=== PATIENT | female | born 1965 | race Caucasian/White ===

== ENCOUNTER 2016-12-31 16:25 | Emergency (ER) | payer MEDICARE ==
[~2016-12-31] VITALS: Ht 160 cm; Wt 83.5 kg
[2016-12-31 16:31] VITALS: BP 122/67
--- NOTE | 2016-12-31 16:40 | NUR ---
Patient ambulated to bed 04.
--- NOTE | 2016-12-31 16:40 | NUR ---
PATIENT PRESENTS TO ED WITH C/O LOWER BACK PAIN X 2 DAYS--DENIES INCONTINENCE, DENIES DYSURIA HX---HTN, DM, ARTHRITIS RX----METFORMIN, MAXIDE, LISINOPRIL, LIPITOR; DENIES N/V/D; SKIN IS PINK/WARM/DRY; AAOX4 WITH EVEN AND STEADY GAIT; LUNGS CLEAR BL; HR EVEN AND REGULAR; PT DENIES ANY FEVER, CP, SOB, OR COUGH AT THIS TIME; PATIENT STATES PAIN OF 10/10 AT THIS TIME; VSS; PATIENT POSITIONED FOR COMFORT; HOB ELEVATED; BEDRAILS UP X2; BED DOWN. ER MD MADE AWARE OF PT STATUS.
--- NOTE | 2016-12-31 16:41 | NUR ---
Dr. Andrade evaluating patient at bedside.
[2016-12-31] MEDS ORDERED: KETOROLAC 30 MG/ML VIAL IM ONE (16:50)
[2016-12-31] MEDS ORDERED: diphenhydrAMINE 50 MG/ML VIAL IM ONE (16:50)
[2016-12-31] MEDS ORDERED: KETOROLAC 30 MG/ML VIAL ONE (16:52)
--- NOTE | 2016-12-31 16:57 | NUR ---
PT WENT TO XRAY ACCOMPANIED BY TECH.
[2016-12-31] MEDS ORDERED: HYDROmorphone 1 MG/ML AMP IM ONE (17:45)
[2016-12-31 18:26] VITALS: BP 112/67
--- NOTE | 2016-12-31 18:26 | NUR ---
Patient discharged with v/s stable. Written and verbal after care instructions given and explained. Patient alert, oriented and verbalized understanding of instructions. Ambulatory with steady gait. All questions addressed prior to discharge. ID band removed. Patient advised to follow up with PMD. Rx of NORCO, FLEXERIL given. Patient educated on indication of medication including possible reaction and side effects. Opportunity to ask questions provided and answered.
== END 2016-12-31 18:26 | disposition home or self-care (01) ==
LOC: MED 16:25
DX: G89.29 Other chronic pain (principal); M54.5 Low back pain; M54.9 Dorsalgia, unspecified; E11.9 Type 2 diabetes mellitus without complications; I10 Essential (primary) hypertension; E78.00 Pure hypercholesterolemia, unspecified; M19.90 Unspecified osteoarthritis, unspecified site
CPT/HCPCS: 72100; 81025; 82948; 96372; 99284; J1170; J1200; J1885

== ENCOUNTER 2021-01-12 23:45 | Emergency (ER) | payer MEDICARE ==
[~2021-01-12] VITALS: Ht 154.9 cm; Wt 76.2 kg
[2021-01-12 23:54] VITALS: BP 135/80
--- NOTE | 2021-01-13 01:07 | NUR ---
PT TAKEN TO BED 7
--- NOTE | 2021-01-13 01:11 | NUR ---
55 YO/F BIB self accompanied by w CO sharp constant back pain 10/ and reports she has not been able to void since yesterday 1500. Patient reports she has been unable to completely void for the past 3 weeks and has had episodes of dribbling urine, and having to strain to void d/t feeling like she is retaining urine. Patient also reports a burning sensation when she has urinated. Patient denies blood in urine. Patient denies injury to back. Patient laying supine in bed, locked in lowest position, HOB elevated, at bedside. NAD noted, will continue to monitor. PMH: HTN, Diabetes, fibromyalgia, asthma Allergies: Macrobid
--- NOTE | 2021-01-13 01:11 | NUR ---
Dr. Lauren examining patient.
[2021-01-13] MEDS ORDERED: NACL 0.9% 1,000 ML IV ONE (01:20)
[2021-01-13] MEDS ORDERED: cefTRIAXone 2,000 MG in DEXTROSE 5% 100 ML IV ONE (01:20)
[2021-01-13 01:33] LABS: BASOPHILS # (AUTO) 0.1 K/uL (0.00-0.22); BASOPHILS % (AUTO) 1.4 % (0.0-2.0); EOSINOPHILS # (AUTO) 0.1 K/uL (0-0.4); EOSINOPHILS % (AUTO) 1.4 % (0.0-4.0); HEMATOCRIT 35.4 % (36-48); HEMOGLOBIN 12.5 g/dL (12.0-16.0); LYMPHOCYTES # (AUTO) 1.7 K/uL (2.5-16.5); LYMPHOCYTES % (AUTO) 28.2 % (20.5-51.1); MEAN CORPUSCULAR HEMOGLOBIN 32 pg (27-31); MEAN CORPUSCULAR HGB CONC 35 g/dL (33-37); MEAN CORPUSCULAR VOLUME 90.4 fL (80-94); MONOCYTES # (AUTO) 0.4 K/uL (0.8-1.0); MONOCYTES % (AUTO) 6.9 % (1.7-9.3); NEUTROPHILS # (AUTO) 3.8 K/uL (1.8-7.7); NEUTROPHILS % (AUTO) 62.1 % (42.2-75.2); PLATELET COUNT (AUTO) 358 K/uL (140-450); RED BLOOD CELL COUNT(AUTO) 3.92 MIL/uL (4.20-5.40); RED CELL DISTRIBUTION WIDTH 13.7 % (11.6-13.7); WHITE BLOOD COUNT (AUTO) 6.1 K/uL (4.8-10.8)
--- NOTE | 2021-01-13 01:45 | NUR ---
Roach cathter inserted, 350mL clear yellow urine output. Patient tolerated procedure well.
[2021-01-13] MEDS ORDERED: cefTRIAXone 2,000 MG VIAL ONE (01:51)
[2021-01-13] MEDS ORDERED: KETOROLAC 30 MG/ML VIAL IVP ONE (02:15)
--- NOTE | 2021-01-13 02:45 | NUR ---
COVID SWAB COLLECTED AND WALKED TO LAB BY JULIEN ADAMS .
--- NOTE | 2021-01-13 02:48 | NUR ---
URINE TAKEN TO LAB AND GIVEN TO CAMILO LUCIO TECH.
[2021-01-13 02:50] LABS: APPEARANCE,URINE CLEAR (CLEAR); BILIRUBIN,URINE NEGATIVE (NEGATIVE); BLOOD, URINE TRACE-I (NEGATIVE); COLOR,URINE YELLOW (YELLOW); LEUKOCYTE ESTERASE ,URINE NEGATIVE (NEGATIVE); NITRITE, URINE POSITIVE (NEGATIVE); PH,URINE 5.5 (5.0-9.0); UGLUCOSE NEGATIVE (NEGATIVE)
--- NOTE | 2021-01-13 02:50 | NUR ---
ERMD AT BEDSIDE FOR FURTHER EVALUATION.
--- NOTE | 2021-01-13 02:55 | NUR ---
ICE PACKS PROVIDED FOR PT COMFORT.
[2021-01-13 03:20] LABS: RBC,URINE 0-5 /HPF (0-5); WBC,URINE 0-5 /HPF (0-5)
[2021-01-13] MEDS ORDERED: MORPHINE SULFATE 4 MG/ML SYR IVP ONE (03:50)
--- NOTE | 2021-01-13 05:25 | NUR ---
Dr. Lauren examining patient.
--- NOTE | 2021-01-13 05:30 | NUR ---
Patient total urinary output of 1600mL, clear yellow urine prior to d/c.
--- NOTE | 2021-01-13 05:30 | NUR ---
Patient D/C w Roach catheter and leg bag, per ermd order.
[2021-01-13 05:39] VITALS: BP 135/76
--- NOTE | 2021-01-13 05:39 | NUR ---
Patient discharged with v/s stable. Written and verbal after care instructions given and explained by . Patient verbalized understanding. Ambulatory with steady gait. All questions addressed prior to discharge BY . Advised to follow up with PMD.
== END 2021-01-13 05:39 | disposition home or self-care (01) ==
LOC: MED 23:45
DX: R33.9 Retention of urine, unspecified (principal); E11.9 Type 2 diabetes mellitus without complications; I10 Essential (primary) hypertension; J45.909 Unspecified asthma, uncomplicated; Z88.8 Allergy status to other drugs, medicaments and biological substances; Z20.822 Contact with and (suspected) exposure to COVID-19
CPT/HCPCS: 36415; 51702; 74176; 81001; 81025; 85025; 87040; 87086; 87426; 96365; 96375; 99284; J0696; J1885; J2270; J7030

== ENCOUNTER 2021-11-04 13:55 | Emergency (ER) | payer MEDICARE, MEDICAID ==
[~2021-11-04] VITALS: Ht 154.9 cm; Wt 72.6 kg
[2021-11-04 13:59] VITALS: BP 115/76
--- NOTE | 2021-11-04 14:10 | NUR ---
PT AMBULATED TO ER BED 3
[2021-11-04] MEDS ORDERED: NACL 0.9% 1,000 ML IV ONE (14:25)
--- NOTE | 2021-11-04 14:49 | NUR ---
blood collected from iv start, given to frances lutz
--- NOTE | 2021-11-04 14:53 | NUR ---
urine dip stick done and collected by frances lutz
--- NOTE | 2021-11-04 15:22 | NUR ---
56 y/o female, pt states she has had frequent uti in the past, was placed on fowler cath for 7 weeks, once removed pt started having symptoms of n&v, loss of appetite, frequent thirst, frequent voiding, dysuria, body aches. pcp made pt aware that her sodium levels were 129. skin is pink/warm/dry. a&o x4 with even and steady gait. lungs clear bl, heart rate even and regular. pt denies anyone sick in the household with the same symptoms. pt denies any fever, cp, sob, or cough at this time. pt states pain is 8/10 at this time. vss. patient positioned for comfort. hob elevated. bed down. ermd made aware of pt. pmh: uti, dm2, htn, fowler cath for 7 weeks allergy: latex, macrobid (hives) med: metformin, lisinopril, alprazolam, resotril
[2021-11-04 15:23] LABS: MEAN CORPUSCULAR HGB CONC 34 g/dL (33-37); WHITE BLOOD COUNT (AUTO) 4.2 K/uL (4.8-10.8)
[2021-11-04 15:32] LABS: BASOPHILS # (AUTO) 0.1 K/uL (0.00-0.22); BASOPHILS % (AUTO) 1.2 % (0.0-2.0); EOSINOPHILS # (AUTO) 0.1 K/uL (0-0.4); EOSINOPHILS % (AUTO) 1.7 % (0.0-4.0); HEMATOCRIT 35.3 % (36-48); LYMPHOCYTES # (AUTO) 1.8 K/uL (2.5-16.5); LYMPHOCYTES % (AUTO) 41.7 % (20.5-51.1); MEAN CORPUSCULAR HEMOGLOBIN 32 pg (27-31); MEAN CORPUSCULAR VOLUME 94.6 fL (80-94); MONOCYTES # (AUTO) 0.3 K/uL (0.8-1.0); MONOCYTES % (AUTO) 7.8 % (1.7-9.3); NEUTROPHILS % (AUTO) 47.6 % (42.2-75.2); PLATELET COUNT (AUTO) 289 K/uL (140-450); RED BLOOD CELL COUNT(AUTO) 3.74 MIL/uL (4.20-5.40); RED CELL DISTRIBUTION WIDTH 12.8 % (11.6-13.7)
[2021-11-04 15:42] LABS: ALBUMIN 3.9 g/dL (3.4-5.0); ANION GAP 12.2 (8-16); CARBON DIOXIDE 26.7 mmol/L (21-32); CREATININE 0.7 mg/dL (0.6-1.3); FREE T4 (FREE THYROXINE) 0.85 ng/dL (0.76-1.46); POTASSIUM 4.9 mmol/L (3.5-5.1); THYROID STIMULATING HORMONE 0.73 uIU/mL (0.34-3.74); TOTAL BILIRUBIN 0.3 mg/dL (0.0-1.0)
--- NOTE | 2021-11-04 15:46 | NUR ---
pt ambulated with even and steady gait to bathroom at this time
[2021-11-04 17:25] VITALS: BP 115/76
--- NOTE | 2021-11-04 17:25 | NUR ---
Patient discharged with v/s stable. Written and verbal after care instructions given and explained. Patient verbalized understanding. Ambulatory with steady gait. All questions addressed prior to discharge. Advised to follow up with PMD.
== END 2021-11-04 17:25 | disposition home or self-care (01) ==
LOC: MED 13:55
DX: E87.1 Hypo-osmolality and hyponatremia (principal); E11.9 Type 2 diabetes mellitus without complications; I10 Essential (primary) hypertension; Z98.890 Other specified postprocedural states; Z88.8 Allergy status to other drugs, medicaments and biological substances; Z91.040 Latex allergy status; Z98.84 Bariatric surgery status
CPT/HCPCS: 36415; 80053; 81002; 84439; 84443; 85025; 96360; 96361; 99283; J7030

== ENCOUNTER 2021-11-06 16:20 | Emergency (ER) | payer MEDICARE, MEDICAID ==
[~2021-11-06] VITALS: Ht 154.9 cm; Wt 75.1 kg
[2021-11-06 16:41] VITALS: BP 154/97
[2021-11-06 18:25] LABS: BASOPHILS # (AUTO) 0.1 K/uL (0.00-0.22); EOSINOPHILS % (AUTO) 0.4 % (0.0-4.0); HEMATOCRIT 40.1 % (36-48); HEMOGLOBIN 13.6 g/dL (12.0-16.0); LYMPHOCYTES # (AUTO) 2.3 K/uL (2.5-16.5); LYMPHOCYTES % (AUTO) 33.2 % (20.5-51.1); MEAN CORPUSCULAR HEMOGLOBIN 32 pg (27-31); MEAN CORPUSCULAR HGB CONC 34 g/dL (33-37); MEAN CORPUSCULAR VOLUME 94.2 fL (80-94); MONOCYTES # (AUTO) 0.4 K/uL (0.8-1.0); MONOCYTES % (AUTO) 6.4 % (1.7-9.3); NEUTROPHILS # (AUTO) 4.1 K/uL (1.8-7.7); PLATELET COUNT (AUTO) 307 K/uL (140-450); RED BLOOD CELL COUNT(AUTO) 4.26 MIL/uL (4.20-5.40); RED CELL DISTRIBUTION WIDTH 12.6 % (11.6-13.7); WHITE BLOOD COUNT (AUTO) 6.9 K/uL (4.8-10.8)
[2021-11-06 18:43] LABS: ALBUMIN 4.3 g/dL (3.4-5.0); ANION GAP 10.8 (8-16); CARBON DIOXIDE 28.4 mmol/L (21-32); CREATININE 0.7 mg/dL (0.6-1.3); POTASSIUM 4.2 mmol/L (3.5-5.1); TOTAL BILIRUBIN 0.3 mg/dL (0.0-1.0)
[2021-11-06] MEDS ORDERED: ONDANSETRON 4 MG/2 ML VIAL IVP ONE (18:55)
[2021-11-06] MEDS ORDERED: NACL 0.9% 1,000 ML IV ONE (18:55)
[2021-11-06] MEDS ORDERED: LORazepam 1 MG TAB PO ONE (18:55)
[2021-11-06] MEDS ORDERED: LORA-476 PO (20:03)
[2021-11-06 20:37] VITALS: BP 156/86
== END 2021-11-06 20:38 | disposition home or self-care (01) ==
LOC: MED 16:20
DX: E87.1 Hypo-osmolality and hyponatremia (principal); R11.0 Nausea; R63.0 Anorexia; R51.9 Headache, unspecified; E11.9 Type 2 diabetes mellitus without complications; I10 Essential (primary) hypertension; Z91.040 Latex allergy status; Z88.8 Allergy status to other drugs, medicaments and biological substances; Z90.49 Acquired absence of other specified parts of digestive tract; Z98.84 Bariatric surgery status; Z79.899 Other long term (current) drug therapy
CPT/HCPCS: 36415; 80053; 83930; 85025; 96374; 99283; J2405; J7030

== ENCOUNTER 2021-11-15 15:31 | Emergency (ER) | payer MEDICARE, MEDICAID ==
[~2021-11-15] VITALS: Ht 154.9 cm; Wt 73.9 kg
[~2021-11-15 15:31] MED LIST: LORA-476 PO
[2021-11-15 15:34] VITALS: BP 151/87
--- NOTE | 2021-11-15 15:57 | NUR ---
LAB BEDSIDE COLLECTING BLOODWORK.
--- NOTE | 2021-11-15 15:58 | NUR ---
URINE HANDED TO PACKAGING DESIGNERMICHELLE LUU
--- NOTE | 2021-11-15 16:01 | NUR ---
56 y/o female, c/o dehyrdration, states she has been drinking a lot of fluids, was seen previously here for same s/s. c/o lightheaded, cp 5/10 pain that is felt only in the mid-chest, fatigue, confusion, and states "I can feel the salt in my eyes and taste it." pt currently a&ox4, no signs of distress noted. pt denies any SOB, fever/chills, n/v. pain in chest is non-radiaitng and is pressure like pain. pt is still urinating and able to produce tears. per patient "her mouth and eyes are dry" pmh: dm2, htn allergy: latex, nitrofurantoin med:
--- NOTE | 2021-11-15 16:01 | NUR ---
xray at patient bedside
[2021-11-15 16:07] LABS: BASOPHILS % (AUTO) 0.7 % (0.0-2.0); EOSINOPHILS % (AUTO) 0.6 % (0.0-4.0); HEMATOCRIT 37.1 % (36-48); HEMOGLOBIN 12.7 g/dL (12.0-16.0); LYMPHOCYTES # (AUTO) 1.7 K/uL (2.5-16.5); LYMPHOCYTES % (AUTO) 29.1 % (20.5-51.1); MEAN CORPUSCULAR HEMOGLOBIN 32 pg (27-31); MEAN CORPUSCULAR HGB CONC 34 g/dL (33-37); MEAN CORPUSCULAR VOLUME 94.1 fL (80-94); MONOCYTES # (AUTO) 0.4 K/uL (0.8-1.0); MONOCYTES % (AUTO) 6.6 % (1.7-9.3); NEUTROPHILS # (AUTO) 3.7 K/uL (1.8-7.7); PLATELET COUNT (AUTO) 317 K/uL (140-450); RED BLOOD CELL COUNT(AUTO) 3.94 MIL/uL (4.20-5.40); RED CELL DISTRIBUTION WIDTH 13.1 % (11.6-13.7); WHITE BLOOD COUNT (AUTO) 5.8 K/uL (4.8-10.8)
--- NOTE | 2021-11-15 16:19 | NUR ---
dr. leon bedside evaluating pt
[2021-11-15 16:30] LABS: ALBUMIN 4.1 g/dL (3.4-5.0); ANION GAP 9.1 (8-16); CARBON DIOXIDE 27.4 mmol/L (21-32); CREATININE 0.8 mg/dL (0.6-1.3); POTASSIUM 4.5 mmol/L (3.5-5.1); TOTAL BILIRUBIN 0.2 mg/dL (0.0-1.0)
[2021-11-15] MEDS ORDERED: NACL 0.9% 1,000 ML IV ONE (16:30)
--- NOTE | 2021-11-15 16:51 | NUR ---
PT PROVIDED WITH WARM BLANKET BEDSIDE
[2021-11-15 17:04] LABS: APPEARANCE,URINE CLEAR (CLEAR); BILIRUBIN,URINE NEGATIVE (NEGATIVE); BLOOD, URINE TRACE-I (NEGATIVE); COLOR,URINE YELLOW (YELLOW); LEUKOCYTE ESTERASE ,URINE NEGATIVE (NEGATIVE); NITRITE, URINE NEGATIVE (NEGATIVE); UGLUCOSE NEGATIVE (NEGATIVE)
--- NOTE | 2021-11-15 17:15 | NUR ---
PT AMBULATED TO RESTROOM WITH STEADY GAIT
[2021-11-15 17:27] LABS: FREE T4 (FREE THYROXINE) 0.87 ng/dL (0.76-1.46)
--- NOTE | 2021-11-15 18:01 | NUR ---
PATIENT IS AT REST. NO SIGNS OF DISTRESS. PROVIDED PT WITH BLANKET .
--- NOTE | 2021-11-15 18:58 | NUR ---
rosangela tavera collected and walked to lab
[2021-11-15] MEDS ORDERED: METF-1243 PO (19:01)
[2021-11-15] MEDS ORDERED: TEMA30CA23 PO (19:01)
[2021-11-15] MEDS ORDERED: LISI5TAB18 PO (19:01)
[2021-11-15] MEDS ORDERED: PROG100C4 PO (19:18)
--- NOTE | 2021-11-15 19:18 | NUR ---
Pt report given to NICOLE HUANG. Transfer of care at this time.
[2021-11-15 19:38] LABS: ANION GAP 7.9 (8-16); CARBON DIOXIDE 27.8 mmol/L (21-32); CREATININE 0.7 mg/dL (0.6-1.3); POTASSIUM 3.7 mmol/L (3.5-5.1)
--- NOTE | 2021-11-15 20:25 | NUR ---
SON KENNEDY [phone] PLEASE CALL HIM WHEN READY FOR PICKUP
--- NOTE | 2021-11-15 20:47 | NUR ---
PT STATED SHE FELT WEAK. ASKED ERMD IF PT COULD HAVE FOOD. PROVIDED PT SANDWHICH, JUICE AND CRACKERS
--- NOTE | 2021-11-15 21:32 | NUR ---
MADE PT AWARE THAT SHE WILL BE TRANSFERED TO ANOTHER HOSPITAL. TRANSFER CONSENT SIGNED
[2021-11-15] MEDS ORDERED: LORazepam 0.5 MG TAB PO ONE (22:00)
--- NOTE | 2021-11-15 23:21 | NUR ---
Patient to be transferred to [facility]. Is being transferred due to INSURANCE PREFERENCE. Receiving facility has accepting physician and available space. ER physician has signed transfer form. Patient or responsible alliance party has agreed to transfer and signed form. Patient belongings inventoried and will be sent with patient. Copy of nursing notes, lab reports, EKG, Physicians Orders and X-rays to be sent with patient. Report called to JULIEN HUTCHINSON at receiving facility. S ambulance service has been called for transfer. ETA is 10 MIN.
--- NOTE | 2021-11-16 00:06 | NUR ---
[facility] TRAN[facility] AT BEDSIDE
[2021-11-16 00:16] VITALS: BP 123/74
--- NOTE | 2021-11-16 00:16 | NUR ---
PT TAKEN BY [facility] TRANSPORT TO [facility] ED BED [id number]
--- NOTE | 2021-11-16 00:36 | NUR ---
The patient's care was reviewed and supervised by Alexa Soares RN.
== END 2021-11-16 00:16 | disposition short-term general hospital (02) ==
LOC: MED 15:31
DX: E87.1 Hypo-osmolality and hyponatremia (principal); Z20.822 Contact with and (suspected) exposure to COVID-19; R07.9 Chest pain, unspecified; I44.7 Left bundle-branch block, unspecified; R42 Dizziness and giddiness; I10 Essential (primary) hypertension; E11.9 Type 2 diabetes mellitus without complications; Z98.890 Other specified postprocedural states; Z79.84 Long term (current) use of oral hypoglycemic drugs; Z98.84 Bariatric surgery status; Z88.1 Allergy status to other antibiotic agents; Z91.040 Latex allergy status
CPT/HCPCS: 36415; 71045; 80048; 80053; 81003; 83880; 83930; 83935; 84300; 84439; 84443; 84484; 85025; 87426; 93005; 96360; 99285; J7030; Q0092

== ENCOUNTER 2022-09-14 11:00 | Emergency (ER) | payer OTHER, MEDICAID ==
[~2022-09-14] VITALS: Ht 154.9 cm; Wt 81.2 kg
[~2022-09-14 11:00] MED LIST changes: +LISI5TAB18 PO; +METF-1243 PO; +PROG100C4 PO; +TEMA30CA23 PO
[2022-09-14 11:08] VITALS: BP 185/98
--- NOTE | 2022-09-14 11:33 | NUR ---
pt ambulated to bed 01
[2022-09-14] MEDS ORDERED: FAMOTIDINE 20 MG/2 ML VIAL IVP ONE (12:00)
[2022-09-14] MEDS ORDERED: NACL 0.9% 1,000 ML IV ONE (12:00)
[2022-09-14] MEDS ORDERED: ONDANSETRON 4 MG/2 ML VIAL IVP ONE (12:00)
--- NOTE | 2022-09-14 12:00 | NUR ---
ASSUMED PATIENT CARE, NURSING ASSESSMENT COMPLETED. DR MCKINNEY AT BEDSIDE, MSE COMPLETED.
--- NOTE | 2022-09-14 12:10 | NUR ---
LABS AND EKG COMPLETED.
[2022-09-14 12:35] LABS: ALBUMIN 4.4 g/dL (3.4-5.0); ANION GAP 13.5 (8-16); ASPARTATE AMINOTRANSFERASE 24 U/L (15-37); CARBON DIOXIDE 27.7 mmol/L (21-32); CHLORIDE 101 mmol/L (98-107); GFR ARICAN-AMERICAN 73 mL/min (>90); GLUCOSE 159 mg/dL (74-106); LIPASE 134 U/L (73-393); POTASSIUM 4.2 mmol/L (3.5-5.1); SODIUM SERUM 138 mmol/L (136-145); TOTAL BILIRUBIN 0.3 mg/dL (0.0-1.0); UREA NITROGEN, BLOOD 16 mg/dL (7-18)
[2022-09-14 12:41] LABS: BASOPHILS % (AUTO) 0.4 % (0.0-2.0); EOSINOPHILS % (AUTO) 0.1 % (0.0-4.0); HEMATOCRIT 39.9 % (36-48); HEMOGLOBIN 13.4 g/dL (12.0-16.0); LYMPHOCYTES # (AUTO) 1.4 K/uL (2.5-16.5); LYMPHOCYTES % (AUTO) 28.7 % (20.5-51.1); MEAN CORPUSCULAR HEMOGLOBIN 32 pg (27-31); MEAN CORPUSCULAR HGB CONC 34 g/dL (33-37); MEAN CORPUSCULAR VOLUME 96.3 fL (80-94); MONOCYTES # (AUTO) 0.3 K/uL (0.8-1.0); MONOCYTES % (AUTO) 6.8 % (1.7-9.3); NEUTROPHILS # (AUTO) 3.2 K/uL (1.8-7.7); PLATELET COUNT (AUTO) 260 K/uL (140-450); RED BLOOD CELL COUNT(AUTO) 4.15 MIL/uL (4.20-5.40); RED CELL DISTRIBUTION WIDTH 13.6 % (11.6-13.7); WHITE BLOOD COUNT (AUTO) 4.9 K/uL (4.8-10.8)
[2022-09-14] MEDS ORDERED: KETOROLAC 15 MG/ML VIAL IVP ONE (13:00)
[2022-09-14] MEDS ORDERED: METOCLOPRAMIDE 10 MG/2 ML INJ VIAL IVP ONE (13:50)
[2022-09-14] MEDS ORDERED: ALUMINUM HYD/MAG/SIMETHICONE 30 ML UDC PO ONE (13:50)
[2022-09-14] MEDS ORDERED: METO-485 PO (14:12)
[2022-09-14] MEDS ORDERED: MAG355OR2 PO (14:12)
[2022-09-14] MEDS ORDERED: OMEP40EC24 PO (14:12)
[2022-09-14 14:20] LABS: APPEARANCE,URINE CLEAR (CLEAR); BILIRUBIN,URINE NEGATIVE (NEGATIVE); BLOOD, URINE TRACE-I (NEGATIVE); COLOR,URINE YELLOW (YELLOW); LEUKOCYTE ESTERASE ,URINE NEGATIVE (NEGATIVE); NITRITE, URINE POSITIVE (NEGATIVE); UGLUCOSE NEGATIVE (NEGATIVE)
[2022-09-14 14:43] LABS: OTHER CASTS, URINE None Seen /LPF (None Seen)
--- NOTE | 2022-09-14 15:00 | NUR ---
PATIENT REQUESTING TO SPEAK .
--- NOTE | 2022-09-14 15:40 | NUR ---
DR SLATER AT BEDSIDE, UPDATING THE PATIENT ACCORDINGLY.
[2022-09-14] MEDS ORDERED: DIPH25TA53 PO (15:45)
[2022-09-14] MEDS ORDERED: NITR100C7 PO (15:45)
--- NOTE | 2022-09-14 15:51 | NUR ---
DISPO AND MEDICAL DECISION MAKING DC HOME WITH AFTERCARE INSTRUCTIONS AND E-RX. ALL INSTRUCTIONS DISCUSSED WITH PATIENT AND ACKNOWLEDGED ACCORDINGLY. PATIENT REPORTS RELIEF BUT WAS INSTRUCTED TO TAKE MEDS PRESCRIBED TO ADDRESS FURTHER SYMPTOMS. DC HOME AMBULATORY, VS WNL.
[2022-09-14 15:53] VITALS: BP 114/65
[2022-09-14] MEDS ORDERED: CIPR500T4 PO (22:43)
== END 2022-09-14 15:53 | disposition home or self-care (01) ==
LOC: MED 11:00
DX: R11.2 Nausea with vomiting, unspecified (principal); R10.10 Upper abdominal pain, unspecified; R07.89 Other chest pain; E11.9 Type 2 diabetes mellitus without complications; I10 Essential (primary) hypertension; Z98.84 Bariatric surgery status; Z79.84 Long term (current) use of oral hypoglycemic drugs; Z90.49 Acquired absence of other specified parts of digestive tract; Z98.890 Other specified postprocedural states; Z79.899 Other long term (current) drug therapy; Z88.8 Allergy status to other drugs, medicaments and biological substances; Z91.040 Latex allergy status
CPT/HCPCS: 36415; 80053; 81001; 83690; 84484; 85025; 87086; 96361; 96374; 96375; 99284; J1885; J2405; J2765; J3490

== ENCOUNTER 2023-02-14 15:21 | Emergency (ER) | payer OTHER, MEDICAID ==
[~2023-02-14] VITALS: Ht 154.9 cm; Wt 78.0 kg
[~2023-02-14 15:21] MED LIST changes: +CIPR500T4 PO; +DIPH25TA53 PO; +MAG355OR2 PO; +METO-485 PO; +OMEP40EC24 PO
[2023-02-14 15:35] VITALS: BP 131/76; PULSE 89; RESP 16; TEMP 98.2; O2SAT 96
[2023-02-14 15:59] LABS: BASOPHILS # (AUTO) 0.1 K/uL (0.00-0.22); BASOPHILS % (AUTO) 1.3 % (0.0-2.0); EOSINOPHILS # (AUTO) 0.1 K/uL (0-0.4); EOSINOPHILS % (AUTO) 1.3 % (0.0-4.0); HEMATOCRIT 39.1 % (36-48); HEMOGLOBIN 13.2 g/dL (12.0-16.0); LYMPHOCYTES % (AUTO) 35.8 % (20.5-51.1); MEAN CORPUSCULAR HEMOGLOBIN 32 pg (27-31); MEAN CORPUSCULAR HGB CONC 34 g/dL (33-37); MEAN CORPUSCULAR VOLUME 95.9 fL (80-94); MONOCYTES # (AUTO) 0.5 K/uL (0.8-1.0); MONOCYTES % (AUTO) 8.5 % (1.7-9.3); NEUTROPHILS % (AUTO) 53.1 % (42.2-75.2); PLATELET COUNT (AUTO) 350 K/uL (140-450); RED BLOOD CELL COUNT(AUTO) 4.08 MIL/uL (4.20-5.40); RED CELL DISTRIBUTION WIDTH 13.4 % (11.6-13.7); WHITE BLOOD COUNT (AUTO) 5.6 K/uL (4.8-10.8)
[2023-02-14 16:15] LABS: ALBUMIN 4.3 g/dL (3.4-5.0); ANION GAP 13.7 (8-16); CARBON DIOXIDE 25.8 mmol/L (21-32); CREATININE 0.8 mg/dL (0.6-1.3); POTASSIUM 4.5 mmol/L (3.5-5.1); TOTAL BILIRUBIN 0.3 mg/dL (0.0-1.0)
--- NOTE | 2023-02-14 17:13 | NUR ---
PATIENT PRESENTS TO ED WITH MIDLINE ABD PAIN. THAT HAS BEEN THREE DAYS. PT STATES SHE HAS NO APPETTITE. PT STATES SHE HAS BEEN TREATING HER GASTRITIS AT HOME, PRIOR BUT CAN NOT GET THE PAIN TO STOP. PT STATES SHE HAS HAD NAUSEA, VOMITTING BUT DENIES DIARREHA.SKIN IS PINK/WARM/DRY; AAOX4 WITH EVEN AND STEADY GAIT; LUNGS CLEAR BL; HR EVEN AND REGULAR; PT DENIES ANY FEVER, CP, SOB, OR COUGH AT THIS TIME; PATIENT STATES PAIN OF 8/10 AT THIS TIME; VSS; PATIENT POSITIONED FOR COMFORT; HOB ELEVATED; BEDRAILS UP X2; BED DOWN. CALL LIGHT WITH IN REACH. ER MD MADE AWARE OF PT STATUS. PMHX GASTRITIS DEHYDRATION UTI
[2023-02-14 17:19] VITALS: O2SAT 96
[2023-02-14] MEDS ORDERED: NACL 0.9% 1,000 ML IV ONE (17:25)
[2023-02-14] MEDS ORDERED: DICYCLOMINE HCL LIQUID 20 MG, ALUMINUM HYD/MAG/SIMETHICONE 30 ML, LIDOCAINE VISCOUS 2% ... PO ONE ×3 (17:25)
[2023-02-14] MEDS ORDERED: ONDANSETRON 4 MG/2 ML VIAL IVP ONE (17:25)
[2023-02-14] MEDS ORDERED: KETOROLAC 30 MG/ML VIAL IVP ONE (17:25)
[2023-02-14] MEDS ORDERED: ALUMINUM HYD/MAG/SIMETHICONE 30 ML UDC ONE (17:34)
[2023-02-14] MEDS ORDERED: DICYCLOMINE HCL LIQUID 10 MG/5 ML UDC ONE (17:34)
[2023-02-14] MEDS ORDERED: ONDA8TAB87 PO (17:48)
[2023-02-14] MEDS ORDERED: IBUP-2213 PO (17:48)
[2023-02-14] MEDS ORDERED: OMEP40EC23 PO (17:48)
--- NOTE | 2023-02-14 18:18 | NUR ---
PT HAS BEEN MEDICATED. PTS FLUIDS INFUSING. NO SIGNS OF DISCOMFORT AT THIS TIME.
--- NOTE | 2023-02-14 18:52 | NUR ---
PT STATES SHES STILL IN PAIN, PAIN IS AT AN 8.
[2023-02-14] MEDS ORDERED: MORPHINE SULFATE 4 MG/ML SYR IM ONE (18:55)
--- NOTE | 2023-02-14 19:10 | NUR ---
PT HAS BEEN MEDICATED BY JULIEN LUKE
--- NOTE | 2023-02-14 19:28 | NUR ---
Pt report given to JULIEN FRASER. Transfer of care at this time.
[2023-02-14 19:53] VITALS: BP 131/76; PULSE 89; RESP 16; TEMP 98.2; O2SAT 96
--- NOTE | 2023-02-14 19:53 | NUR ---
Patient discharged with v/s stable. Written and verbal after care instructions given and explained. New rx ibuprofen, prilosec, and zofran. Patient verbalized understanding. Ambulatory with steady gait. Pt was picked up by daughter to take home. All questions addressed prior to discharge. Advised to follow up with PMD.
== END 2023-02-14 19:53 | disposition home or self-care (01) ==
LOC: MED 15:21
DX: R10.13 Epigastric pain (principal); R11.2 Nausea with vomiting, unspecified; E87.1 Hypo-osmolality and hyponatremia; E11.9 Type 2 diabetes mellitus without complications; K21.9 Gastro-esophageal reflux disease without esophagitis; I10 Essential (primary) hypertension; Z79.4 Long term (current) use of insulin; Z79.899 Other long term (current) drug therapy; Z98.890 Other specified postprocedural states
CPT/HCPCS: 36415; 80053; 81025; 83690; 85025; 96361; 96374; 96375; 99284; J1885; J2270; J2405; J7030; 81002

== ENCOUNTER 2023-03-21 16:20 | Emergency (ER) | payer OTHER, MEDICAID ==
[~2023-03-21] VITALS: Ht 154.9 cm; Wt 77.2 kg
[~2023-03-21 16:20] MED LIST changes: +IBUP-2213 PO; +OMEP40EC23 PO; +ONDA8TAB87 PO
[2023-03-21 16:51] VITALS: BP 118/83; PULSE 92; RESP 20; TEMP 98; O2SAT 97
[2023-03-21 17:59] LABS: BASOPHILS # (AUTO) 0.1 K/uL (0.00-0.22); BASOPHILS % (AUTO) 1.3 % (0.0-2.0); EOSINOPHILS # (AUTO) 0.1 K/uL (0-0.4); EOSINOPHILS % (AUTO) 1.3 % (0.0-4.0); HEMATOCRIT 38.7 % (36-48); HEMOGLOBIN 12.9 g/dL (12.0-16.0); LYMPHOCYTES # (AUTO) 2.5 K/uL (2.5-16.5); LYMPHOCYTES % (AUTO) 37.6 % (20.5-51.1); MEAN CORPUSCULAR HEMOGLOBIN 32 pg (27-31); MEAN CORPUSCULAR HGB CONC 33 g/dL (33-37); MEAN CORPUSCULAR VOLUME 96.8 fL (80-94); MONOCYTES # (AUTO) 0.5 K/uL (0.8-1.0); MONOCYTES % (AUTO) 8.1 % (1.7-9.3); NEUTROPHILS # (AUTO) 3.5 K/uL (1.8-7.7); NEUTROPHILS % (AUTO) 51.7 % (42.2-75.2); PLATELET COUNT (AUTO) 313 K/uL (140-450); WHITE BLOOD COUNT (AUTO) 6.8 K/uL (4.8-10.8)
[2023-03-21 18:07] LABS: APPEARANCE,URINE CLEAR (CLEAR); BILIRUBIN,URINE NEGATIVE (NEGATIVE); BLOOD, URINE TRACE-I (NEGATIVE); COLOR,URINE YELLOW (YELLOW); LEUKOCYTE ESTERASE ,URINE NEGATIVE (NEGATIVE); NITRITE, URINE NEGATIVE (NEGATIVE); PROTEIN,URINE NEGATIVE (NEGATIVE); UGLUCOSE NEGATIVE (NEGATIVE); UROBILINOGEN,URINE 0.2 EU/dL (0.2 - 1)
[2023-03-21 18:12] LABS: ALBUMIN 3.9 g/dL (3.4-5.0); ANION GAP 13.5 (8-16); CALCIUM 9.1 mg/dL (8.5-10.1); CARBON DIOXIDE 27.1 mmol/L (21-32); CREATININE 0.9 mg/dL (0.6-1.3); MAGNESIUM 1.9 mg/dL (1.8-2.4); PHOSPHORUS 4.2 mg/dL (2.5-4.9); POTASSIUM 4.6 mmol/L (3.5-5.1); TOTAL BILIRUBIN 0.4 mg/dL (0.0-1.0); TOTAL PROTEIN, SERUM 7.8 g/dL (6.4-8.2)
[2023-03-21 18:17] LABS: BACTERIA,URINE FEW /HPF (None Seen); RBC,URINE 0-5 /HPF (0-5); SQUAMOUS EPITHELIAL CELL,UR 0-3 (FEW) /LPF (0-3 (FEW)); WBC,URINE 0-5 /HPF (0-5)
[2023-03-21] MEDS ORDERED: ONDANSETRON 4 MG ODT PO ONE (18:20)
[2023-03-21 18:31] VITALS: BP 104/73; PULSE 75; RESP 15; TEMP 98; O2SAT 95
[2023-03-21] MEDS ORDERED: ONDA-188 SL ×2 (18:50→19:05)
[2023-03-21] MEDS ORDERED: KETOROLAC 15 MG/ML VIAL IM ONE (19:00)
== END 2023-03-21 19:00 | disposition home or self-care (01) ==
LOC: MED 16:20
DX: R53.1 Weakness (principal); R42 Dizziness and giddiness; I10 Essential (primary) hypertension; E11.9 Type 2 diabetes mellitus without complications; K21.9 Gastro-esophageal reflux disease without esophagitis; Z88.8 Allergy status to other drugs, medicaments and biological substances; Z91.040 Latex allergy status
CPT/HCPCS: 36415; 80053; 81001; 83735; 84100; 84443; 85025; 99283; Q0162

== ENCOUNTER 2023-05-30 16:23 | Emergency (ER) | payer OTHER, MEDICAID ==
[~2023-05-30] VITALS: Ht 162.6 cm; Wt 72.6 kg
[~2023-05-30 16:23] MED LIST changes: +ONDA-188 SL
[2023-05-30 16:38] VITALS: BP 158/93; PULSE 87; RESP 18; TEMP 98.1; O2SAT 98
[2023-05-30 17:22] LABS: BASOPHILS % (AUTO) 0.7 % (0.0-2.0); EOSINOPHILS % (AUTO) 0.6 % (0.0-4.0); HEMATOCRIT 41.2 % (36-48); HEMOGLOBIN 14.1 g/dL (12.0-16.0); LYMPHOCYTES # (AUTO) 2.1 K/uL (2.5-16.5); LYMPHOCYTES % (AUTO) 32.6 % (20.5-51.1); MEAN CORPUSCULAR HEMOGLOBIN 33 pg (27-31); MEAN CORPUSCULAR HGB CONC 34 g/dL (33-37); MEAN CORPUSCULAR VOLUME 95.4 fL (80-94); MONOCYTES # (AUTO) 0.4 K/uL (0.8-1.0); MONOCYTES % (AUTO) 5.5 % (1.7-9.3); NEUTROPHILS % (AUTO) 60.6 % (42.2-75.2); PLATELET COUNT (AUTO) 292 K/uL (140-450); RED BLOOD CELL COUNT(AUTO) 4.32 MIL/uL (4.20-5.40); RED CELL DISTRIBUTION WIDTH 13.1 % (11.6-13.7); WHITE BLOOD COUNT (AUTO) 6.6 K/uL (4.8-10.8)
[2023-05-30 17:25] LABS: APPEARANCE,URINE CLEAR (CLEAR); BILIRUBIN,URINE NEGATIVE (NEGATIVE); BLOOD, URINE 1+ (NEGATIVE); COLOR,URINE YELLOW (YELLOW); LEUKOCYTE ESTERASE ,URINE NEGATIVE (NEGATIVE); NITRITE, URINE NEGATIVE (NEGATIVE); PROTEIN,URINE TRACE (NEGATIVE); UGLUCOSE NEGATIVE (NEGATIVE); UROBILINOGEN,URINE 0.2 EU/dL (0.2 - 1)
[2023-05-30 17:35] LABS: BACTERIA,URINE FEW /HPF (None Seen); SQUAMOUS EPITHELIAL CELL,UR 0-3 (FEW) /LPF (0-3 (FEW)); WBC,URINE 0-5 /HPF (0-5)
[2023-05-30 17:39] LABS: ALBUMIN 4.5 g/dL (3.4-5.0); ANION GAP 11.5 (8-16); CALCIUM 9.4 mg/dL (8.5-10.1); CARBON DIOXIDE 28.6 mmol/L (21-32); POTASSIUM 4.1 mmol/L (3.5-5.1); TOTAL BILIRUBIN 0.4 mg/dL (0.0-1.0); TOTAL PROTEIN, SERUM 8.5 g/dL (6.4-8.2)
[2023-05-30 17:46] LABS: LIPASE 36 U/L (16-77)
[2023-05-30] MEDS ORDERED: PYR100 PO (18:43)
[2023-05-30] MEDS ORDERED: FAMO-92 PO (18:43)
[2023-05-30] MEDS ORDERED: ONDA-188 SL (18:43)
[2023-05-30] MEDS ORDERED: CEPH-588 PO (18:43)
[2023-05-30 19:05] VITALS: BP 158/93; PULSE 87; RESP 18; TEMP 98.1; O2SAT 98
== END 2023-05-30 19:05 | disposition home or self-care (01) ==
LOC: MED 16:23
DX: N30.00 Acute cystitis without hematuria (principal); K29.70 Gastritis, unspecified, without bleeding; J45.909 Unspecified asthma, uncomplicated; K21.9 Gastro-esophageal reflux disease without esophagitis; I10 Essential (primary) hypertension; E11.9 Type 2 diabetes mellitus without complications; Z79.4 Long term (current) use of insulin; Z79.899 Other long term (current) drug therapy
CPT/HCPCS: 36415; 71046; 80053; 81001; 83690; 83880; 84484; 85025; 93005; 99285